=== PATIENT | female | born 1990 | race African-American/Black ===

== ENCOUNTER 2017-02-23 19:36 | Emergency (ER) | payer BC, MEDICAID, OTHER ==
[~2017-02-23] VITALS: Ht 157.5 cm; Wt 64.9 kg
[~2017-02-23 19:36] MED LIST: IBUP800T23 PO; METH750T2 PO; NAPR40TA PO; [UNRECOGNIZED DRUG - REMARK] PO
[2017-02-23 19:41] VITALS: BP_SYST 135; BP_DIAS 8; BP_DIAS 86; PULSE 83; RESP 16; TEMP 98.5; O2SAT 98
--- NOTE | 2017-02-23 20:30 | PD ---
HPI Chief Complaint: Related Problem Time Seen by Provider: 20:25 Travel History International Travel<30 days: No Contact w/Intl Traveler<30days: No Traveled to known affect area: No History of Present Illness HPI The patient is a 26-year-old female, G3, P1, A1 which was elective who complains of spotting without any abdominal pain or cramping for several days but this has resolved. She denies any fever. She has an OB appointment for the first time 8 days from today. [facility] Past Medical History Medical History: Denies Significant Hx Cardiovascular Problems: No Diminished Hearing: No Gastrointestinal Disorders: No Genitourinary: No Immune Disorder: No Musculoskeletal: No Neurologic: No Psychiatric: No Reproductive: No Respiratory: No Immunizations Current: Yes ?: LMP: 01/21/17 Menopausal: No : 2 Para: 1 : 1 Past Surgical History Other Surgery: No Social History Alcohol Use: No Tobacco Use: No Substance Use: No Allergies-Medications (Allergen,Severity, Reaction): Coded Allergies: No Known Allergies (Verified , 02/23/17) Reported Meds & Prescriptions Reported Meds & Active Scripts Active No Active Prescriptions or Reported Medications Review of Systems Except as stated in HPI: all other systems reviewed are Neg Physical Exam Narrative GENERAL: Well-nourished, well-developed patient in no apparent distress. Her vital signs are normal for . SKIN: Focused skin assessment warm/dry. HEAD: Normocephalic. EYES: No scleral icterus. No injection or drainage. NECK: Supple, trachea midline. No JVD or lymphadenopathy. CARDIOVASCULAR: Regular rate and rhythm without murmurs, gallops, or rubs. RESPIRATORY: Breath sounds equal bilaterally. No accessory muscle use. GASTROINTESTINAL: Abdomen soft, non-tender, nondistended. MUSCULOSKELETAL: No cyanosis, or edema. BACK: Nontender without obvious deformity. No CVA tenderness. GENITOURINARY: Normal external genitalia without lesions or erythema. Vaginal vault without blood and there is a pure white drainage. Cervical os was closed with cervical ectopy and no drainage. No cervical motion tenderness. Uterus nontender and 8 weeks enlarged. Bilateral adnexa nontender without masses. Data Data Last Documented VS Vital Signs Date Time Temp Pulse Resp B/P Pulse Ox O2 Delivery O2 Flow Rate FiO2 02/23/17 19:41 98.5 83 16 135/86 98 MDM Medical Decision Making Medical Screen Exam Complete: Yes Emergency Medical Condition: Yes Medical Record Reviewed: Yes Differential Diagnosis Intrauterine , bleeding from cervical ectopy, threatened AB, vaginal lacerationunlikely, Narrative Course The patient has an intrauterine , 8 weeks in size on physical exam. She has considerable cervical ectopy although she is not bleeding at this time. The bleeding was likely from cervical ectopy. Diagnosis Primary Impression: Intrauterine Additional Impression: Ectopy of cervix Additional Instructions: The bleeding appears to be from the tissue that has grown woman with a near uterus to the outside. This tissue bleeds easily but does not mean anything bad. Follow-up with your dependency director as scheduled. Med/Other Pt SpecificInfo: No Change to Meds Scripts No Active Prescriptions or Reported Meds Disposition: 01 DISCHARGE HOME Condition: Stable Modesto Maznano MD Feb 23, 2017 20:30
== END 2017-02-23 20:41 | disposition home or self-care (01) ==
LOC: PHED 19:36
DX: O26.851 Spotting complicating pregnancy, first trimester (principal); N86 Erosion and ectropion of cervix uteri
CPT/HCPCS: 99283

== ENCOUNTER 2017-04-17 18:51 | Emergency (ER) | payer MEDICAID ==
[~2017-04-17] VITALS: Ht 157.5 cm; Wt 66.8 kg
[2017-04-17 18:57] VITALS: BP 116/79; PULSE 92; RESP 16; TEMP 98.6; O2SAT 100
--- NOTE | 2017-04-17 19:40 | PD ---
HPI Chief Complaint: ENT Complaint Time Seen by Provider: 19:05 Travel History International Travel<30 days: No Contact w/Intl Traveler<30days: No Traveled to known affect area: No History of Present Illness HPI Patient is a 26-year-old female presents emergency department for evaluation of sore throat. Patient states she is 17 weeks currently. Denies any vaginal bleeding vaginal discharge loss of fluid abdominal pain. Denies any cough congestion or fever. Patient thinks that she has strep throat she's had in the past. Denies any difficulty swallowing or painful swallowing. PFSH Past Medical History Hx Anticoagulant Therapy: No Cardiovascular Problems: No Diabetes: No Diminished Hearing: No Gastrointestinal Disorders: No Genitourinary: No Immune Disorder: No Musculoskeletal: No Neurologic: No Psychiatric: No Reproductive: No Respiratory: No Immunizations Current: Yes ?: Menopausal: No : 2 Para: 1 : 1 Past Surgical History Other Surgery: No Social History Alcohol Use: No Tobacco Use: No Substance Use: No Allergies-Medications (Allergen,Severity, Reaction): Coded Allergies: No Known Allergies (Verified , 04/17/17) Reported Meds & Prescriptions Reported Meds & Active Scripts Active No Active Prescriptions or Reported Medications Review of Systems Except as stated in HPI: all other systems reviewed are Neg Physical Exam Narrative GENERAL: Well-nourished, well-developed patient. SKIN: Focused skin assessment warm/dry. HEAD: Normocephalic. EYES: No scleral icterus. No injection or drainage. ENT: Oropharynx clear, moist, tonsils normal, low lymphadenopathy, TMs clear bilaterally. NECK: Supple, trachea midline. No JVD or lymphadenopathy. CARDIOVASCULAR: Regular rate and rhythm without murmurs, gallops, or rubs. RESPIRATORY: Breath sounds equal bilaterally. No accessory muscle use. GASTROINTESTINAL: Abdomen soft, gravid nontender abdomen. MUSCULOSKELETAL: No cyanosis, or edema. BACK: Nontender without obvious deformity. No CVA tenderness. Data Data Last Documented VS Vital Signs Date Time Temp Pulse Resp B/P Pulse Ox O2 Delivery O2 Flow Rate FiO2 04/17/17 18:57 98.6 92 16 116/79 100 Orders Group A Rapid Strep Screen (04/17/17 19:05) Strep Culture (Group A) (04/17/17 19:10) MDM Medical Decision Making Medical Screen Exam Complete: Yes Emergency Medical Condition: Yes Differential Diagnosis Strep throat, URI, , pneumonia unlikely. Narrative Course 18-year-old female roomed in emergency department, clinical suspicion is quite low for strep throat, clinical suspicion is even lower for pneumonia or severe bacterial infection. She appears well and has no abdominal complaints or vaginal complaints. Given that her status strep test was ordered and negative. No indication for any Vioxx this time. Discussed symptomatic management home with Chloraseptic and discussed following up with her PERFORMANCE MANAGER. Diagnosis Primary Impression: Sore throat Additional Impression: URI (upper respiratory infection) Qualified Code: J06.9 - Viral upper respiratory tract infection Additional Instructions: Follow-up with your PERFORMANCE MANAGER as scheduled. Scripts No Active Prescriptions or Reported Meds Disposition: 01 DISCHARGE HOME Condition: Stable Corbin Gresham MD Apr 17, 2017 19:40
== END 2017-04-17 19:55 | disposition home or self-care (01) ==
LOC: PHEFT 18:51
DX: O26.92 Pregnancy related conditions, unspecified, second trimester (principal); J02.9 Acute pharyngitis, unspecified; J06.9 Acute upper respiratory infection, unspecified; Z3A.17 17 weeks gestation of pregnancy
CPT/HCPCS: 87081; 87880; 99283

== ENCOUNTER 2017-05-23 17:03 | Emergency (ER) | payer MEDICAID, BC ==
[~2017-05-23] VITALS: Ht 157.5 cm; Wt 69.7 kg
[2017-05-23 17:06] VITALS: BP 144/65; PULSE 100; RESP 16; TEMP 98.4; O2SAT 98
--- NOTE | 2017-05-23 17:21 | PD ---
HPI Chief Complaint: Skin Problem Time Seen by Provider: 17:21 Travel History International Travel<30 days: No Contact w/Intl Traveler<30days: No Traveled to known affect area: No History of Present Illness HPI 26-year-old Afro[place] female presents the emergency department with a one- week history of generalized erythematous raised bumpy rash. Patient is 21 weeks . 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 The rash comes and goes and improves with topical Benadryl. She is just concerned she may have scabies or some other type of infectious agent. She has no fever, chills, or other constitutional symptoms. She has no known drug allergies. PFSH Past Medical History Hx Anticoagulant Therapy: No Cardiovascular Problems: No Diabetes: No Diminished Hearing: No Gastrointestinal Disorders: No Genitourinary: No Immune Disorder: No Musculoskeletal: No Neurologic: No Psychiatric: No Reproductive: No Respiratory: No Immunizations Current: Yes ?: Menopausal: No : 2 Para: 1 : 1 Past Surgical History Other Surgery: No Social History Alcohol Use: No Tobacco Use: No Substance Use: No Allergies-Medications (Allergen,Severity, Reaction): Coded Allergies: No Known Allergies (Verified , 05/23/17) Reported Meds & Prescriptions Reported Meds & Active Scripts Active No Active Prescriptions or Reported Medications Review of Systems Except as stated in HPI: all other systems reviewed are Neg General / Constitutional: No: Fever Eyes: No: Visual changes HENT: No: Headaches Cardiovascular: No: Chest Pain or Discomfort Respiratory: No: Shortness of Breath Gastrointestinal: No: Abdominal Pain Genitourinary: No: Dysuria Musculoskeletal: No: Pain Skin: Positive Rash, Positive Itching Neurologic: No: Weakness Psychiatric: No: Depression Endocrine: No: Polydipsia Hematologic/Lymphatic: No: Easy Bruising Physical Exam Narrative GENERAL: Patient is in no acute distress. SKIN: Warm and dry. Patient has generalized widespread erythematous raised rash consistent with dermatitis secondary to . I see no obvious signs of cellulitis or scabies infestation. HEAD: Atraumatic. Normocephalic. EYES: Pupils equal and round. No scleral icterus. No injection or drainage. ENT: No nasal bleeding or discharge. Mucous membranes pink and moist. Pharynx is clear. Airway is patent. NECK: Trachea midline. Supple and nontender. CARDIOVASCULAR: Regular rate and rhythm. RESPIRATORY: No accessory muscle use. Clear to auscultation. Breath sounds equal bilaterally. GASTROINTESTINAL: Abdomen soft, non-tender, nondistended. Hepatic and splenic margins not palpable. Gravid uterus is noted. MUSCULOSKELETAL: Extremities without clubbing, cyanosis, or edema. No obvious deformities. NEUROLOGICAL: Awake and alert. No obvious cranial nerve deficits. Motor grossly within normal limits. Five out of 5 muscle strength in the arms and legs. Normal speech. PSYCHIATRIC: Appropriate mood and affect; insight and judgment normal. Data Data Last Documented VS Vital Signs Date Time Temp Pulse Resp B/P Pulse Ox O2 Delivery O2 Flow Rate FiO2 05/23/17 17:06 98.4 100 16 144/65 98 MDM Medical Decision Making Medical Screen Exam Complete: Yes Emergency Medical Condition: Yes Differential Diagnosis Pruritus. Dermatitis. Scabies. Narrative Course I do not feel the patient has scabies or other contagious agent. I feel the patient is probably having dermatitis secondary to her . Patient is able to use topical Caladryl and oral Benadryl as directed as needed. Patient should avoid getting overheated as this may exacerbate the rash. Patient should follow with her TRACER CLERK. 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 I feel the patient is probably having dermatitis secondary to her . Patient is able to use topical Caladryl and oral Benadryl as directed as needed. Patient should avoid getting overheated as this may exacerbate the rash. Patient should follow with her TRACER CLERK. Med/Other Pt SpecificInfo: Prescription(s) given Scripts No Active Prescriptions or Reported Meds Disposition: DISCHARGE HOME Condition: Stable Checo Aguiar May 23, 2017 17:21
[2017-05-23] MEDS ORDERED: DIPH25CA PO (17:32)
== END 2017-05-23 17:58 | disposition home or self-care (01) ==
LOC: PHEFT 17:03
DX: O26.892 Other specified pregnancy related conditions, second trimester (principal); L30.8 Other specified dermatitis; Z3A.21 21 weeks gestation of pregnancy
CPT/HCPCS: 99282